=== PATIENT | female | born 1975 | race Caucasian/White ===

== ENCOUNTER 2017-10-02 17:18 | Day surgery (SDC) | payer SELFPAY ==
[2017-10-02 18:08] LABS: Basophils # (Auto) 0.1 K/mm3 (0.0-0.1); Basophils % (Auto) 0.9 % (0.0-1.8); Eosinophils # (Auto) 0.5 K/mm3 (0.0-0.4); Eosinophils % (Auto) 5.9 % (0.0-4.3); Hematocrit 34.4 % (30.3-42.9); Hemoglobin 11.1 gm/dl (10.1-14.3); Lymphocytes # (Auto) 1.7 K/mm3 (1.2-5.4); Lymphocytes % (Auto) 20.9 % (13.4-35.0); Mean Corpuscular HGB Conc 32 % (30-34); Mean Corpuscular Volume 77 fl (79-97); Monocytes # (Auto) 0.6 K/mm3 (0.0-0.8); Monocytes % (Auto) 7.4 % (0.0-7.3); Platelet Count 277 K/mm3 (140-440); Red Blood Count 4.46 M/mm3 (3.65-5.03); Red Cell Distribution Width 17.1 % (13.2-15.2)
[2017-10-02 18:15] LABS: Mean Corpuscular Hemoglobin 25 pg (28-32)
--- NOTE | 2017-10-02 19:23 | Emergency Department Report ---
ED Female HPI - General Chief complaint: Vaginal Bleeding Stated complaint: HEAVY BLEEDING Time Seen by Provider: 10/02/17 19:21 Source: patient Mode of arrival: Wheelchair Limitations: Language Barrier - History of Present Illness MD Complaint: vaginal bleeding -: Sudden, This afternoon Location: perineum Radiation: non-radiating Severity: severe Severity scale (0 -10): 8 Quality: cramping, sharp Consistency: constant Improves with: none Worsens with: none Are you Now?: Yes Associated Symptoms: vaginal bleeding - Related Data Sexually active: Yes Previous Rx's Medication Instructions Recorded Last Taken Type Doxycycline [Vibramycin CAP] 100 mg PO Q12HR #14 capsule 10/03/17 Unknown Rx Ibuprofen [Motrin] 800 mg PO Q8HR PRN #20 tablet 10/03/17 Unknown Rx Methylergonovine [Methergine] 0.2 mg PO Q8HR #6 tablet 10/03/17 Unknown Rx Allergies Allergy/AdvReac Type Severity Reaction Status Date / Time Penicillins Allergy Hives Verified 10/02/17 17:49 ED Review of Systems ROS: Stated complaint: HEAVY BLEEDING Other details as noted in HPI Comment: All other systems reviewed and negative Constitutional: denies: chills, fever Eyes: denies: eye pain, eye discharge ENT: denies: ear pain, throat pain Respiratory: denies: cough, shortness of breath Cardiovascular: denies: chest pain, palpitations, dyspnea on exertion Endocrine: no symptoms reported Gastrointestinal: denies: abdominal pain, nausea, vomiting, diarrhea, constipation Genitourinary: denies: urgency, dysuria, frequency Musculoskeletal: denies: back pain, joint swelling Skin: denies: rash, lesions, change in color Neurological: denies: headache, weakness, numbness Psychiatric: denies: anxiety, depression Hematological/Lymphatic: denies: easy bleeding, easy bruising ED Past Medical Hx - Past Medical History Previous Medical History?: Yes Additional medical history: miscarriage 2017 - Surgical History Past Surgical History?: No - Social History Smoking Status: Never Smoker Substance Use Type: None - Medications Home Medications: Home Medications Medication Instructions Recorded Confirmed Last Taken Type Doxycycline [Vibramycin CAP] 100 mg PO Q12HR #14 capsule 10/03/17 Unknown Rx Ibuprofen [Motrin] 800 mg PO Q8HR PRN #20 tablet 10/03/17 Unknown Rx Methylergonovine [Methergine] 0.2 mg PO Q8HR #6 tablet 10/03/17 Unknown Rx ED Physical Exam - General Limitations: Language Barrier General appearance: alert, in no apparent distress - Head Head exam: Present: atraumatic, normocephalic, normal inspection - Eye Eye exam: Present: normal appearance, PERRL, EOMI Pupils: Present: normal accommodation - ENT ENT exam: Present: normal exam, normal orophraynx, mucous membranes moist - Neck Neck exam: Present: normal inspection, full ROM. Absent: tenderness - Respiratory Respiratory exam: Present: normal lung sounds bilaterally. Absent: respiratory distress, wheezes, rales, rhonchi, stridor - Cardiovascular Cardiovascular Exam: Present: regular rate, normal rhythm, normal heart sounds - GI/Abdominal GI/Abdominal exam: Present: soft, normal bowel sounds. Absent: distended, tenderness, guarding, rebound, rigid - Rectal Rectal exam: Present: deferred - External exam: Present: normal external exam, bleeding Speculum exam: Present: vaginal bleeding (with clots.). Absent: foreign body, laceration Bi-manual exam: Present: uterine enlargement, uterine tenderness, other ( Cahrperonw was Ms. Kiara RN.) - Extremities Exam Extremities exam: Present: normal inspection, full ROM, normal capillary refill - Back Exam Back exam: Present: normal inspection, full ROM - Neurological Exam Neurological exam: Present: alert, oriented X3, CN II-XII intact - Psychiatric Psychiatric exam: Present: normal affect, flat affect - Skin Skin exam: Present: warm, dry, intact, normal color. Absent: rash ED Course Vital Signs 10/02/17 10/02/17 10/02/17 17:44 21:41 21:46 Temperature 99 F Pulse Rate 80 89 83 Respiratory 16 15 14 Rate Blood Pressure 139/85 137/89 137/89 Blood Pressure [Left] O2 Sat by Pulse 99 Oximetry 10/02/17 10/02/17 10/02/17 22:00 22:16 22:30 Temperature Pulse Rate 87 85 83 Respiratory 15 12 16 Rate Blood Pressure 137/89 137/89 137/89 Blood Pressure [Left] O2 Sat by Pulse Oximetry 10/02/17 10/02/17 10/02/17 22:33 22:46 23:48 Temperature Pulse Rate 64 84 102 H Respiratory 16 26 H 13 Rate Blood Pressure 137/89 Blood Pressure 138/76 [Left] O2 Sat by Pulse 96 Oximetry - Reevaluation(s) Reevaluation #1: 10/02/17 23:10 I consulted the OBGYN exploration geologist Dr Adilene Fernandez. He will take patient to the OR for further surgical management. ED Medical Decision Making - Lab Data Result diagrams: 10/02/17 17:52 10/02/17 20:42 - Radiology Data Radiology results: report reviewed, image reviewed - Medical Decision Making Vaginal Bleeding. Early . Spontaneous . Critical care attestation.: If time is entered above; I have spent that time in minutes in the direct care of this critically ill patient, excluding procedure time. ED Disposition Clinical Impression: Vaginal bleeding before 22 weeks gestation, Early stage of , Miscarriage, threatened, early Disposition: DC-01 TO HOME OR SELFCARE Is pt being admited?: Yes Does the pt Need Aspirin: No Condition: Good Time of Disposition: 23:11
[2017-10-02 19:37] LABS: Bilirubin,Urine NEG (Negative); Blood,Urine LG (Negative); Color,Urine Red (Yellow)
[2017-10-02 19:40] LABS: RBC,Urine > 182.0 /HPF (0.0-6.0)
[2017-10-02] MEDS ORDERED: NACL 0.9% 1000 ML 1,000 ML IV ONE ×2 (20:36→23:24)
[2017-10-02 21:01] LABS: INR 1.01 (0.87-1.13)
[2017-10-02 21:02] LABS: Partial Thromboplastin Time 28.7 Sec. (24.2-36.6)
[2017-10-02 21:08] LABS: Alanine Aminotransferase 11 units/L (7-56); BUN/Creatinine Ratio 30; Blood Urea Nitrogen 12 mg/dL (7-17); Calcium 8.9 mg/dL (8.4-10.2); Hemolysis Index 13
[2017-10-02] MEDS ORDERED: GARAMYCIN IV SCH (23:00)
[2017-10-02] MEDS ORDERED: CLEOCIN 600 MG/50 mL 600 MG/50 ML BAG IV NR (23:00)
[2017-10-02] MEDS ORDERED: GARAMYCIN/NS 120MG/100ML 120 MG/100 ML BAG IV ONE (23:00)
--- NOTE | 2017-10-02 23:04 | Short Stay Summary ---
Short Stay Documentation Date of service: 10/02/17 Narrative H&P: Pt is a 41 yo HF LMP 07/21/17presents to [facility] ER complaining of heavy vaginal bleeding since 3:30pm. Pt did not know she was with a Bhcg 5579. H/H is 11.1/34.4 Pelvic u/s was done, but not yet read, however pt is actively bleeding. She will therefore be admitted for a D&C due to Incomplete . - History Principal diagnosis: Incomplete H&P: obtained from office Past Medical History: other (asthma) Past Surgical History: No surgical history Social history: no significant social history, - Allergies and Medications Current Medications: Allergies Penicillins Allergy (Verified 10/02/17 17:49) Hives Home Medications Medication Instructions Recorded Confirmed Last Taken Type No Known Home Medications [No 10/02/17 10/02/17 Unknown History Reported Home Medications] - Physical exam General appearance: mild distress Integumentary: no rash HEENT: Atraumatic Lungs: Clear to auscultation Breasts: deferred Heart: Regular rate Gastrointestinal: normal Female Genitourinary: deferred Rectal Exam: deferred Extremities: no ischemia Neurological: Normal speech - Brief post op/procedure progress note Date of procedure: 10/03/17 Pre-op diagnosis: Incomplete Post-op diagnosis: same Procedure: Dilatation and curettage Anesthesia: MAC Findings: An 8-10 week size uterus with large amounts of blood and blood clots in the vaginal vault Surgeon: TERRA BROWN Estimated blood loss: 50-100ml Pathology: list (POC) Specimen disposition: to lab Condition: stable - Hospital course Hospital course: Unremarkable - Disposition Condition at discharge: Good Disposition: DC-01 TO HOME OR SELFCARE - Discharge Diagnoses (1) Incomplete Status: Resolved Short Stay Discharge Plan Activity: no restrictions Diet: regular Follow up with: PRIMARY CAREMD [Primary Care Provider] - 3-5 Days TERRA BROWN MD [Staff Physician] - 7 Days Prescriptions: Doxycycline [Vibramycin CAP] 100 mg PO Q12HR #14 capsule Ibuprofen [Motrin] 800 mg PO Q8HR PRN #20 tablet PRN Reason: Pain, Moderate (4-6) Methylergonovine [Methergine] 0.2 mg PO Q8HR #6 tablet
--- NOTE | 2017-10-02 23:11 | Ultrasound Report ---
FINAL REPORT PROCEDURE: US OB TRANSVAGINAL TECHNIQUE: Real-time transvaginal sonography of the uterus, placenta, amniotic fluid, adnexa, and fetus was performed with image documentation. Measurements were obtained to determine age/size. M-mode Doppler was used to document heartbeat. CPT 45655 HISTORY: vaginal bleeding COMPARISON: No prior studies are available for comparison. FINDINGS: An oval fluid filled sac measuring 2.2 x 0.8 x 1.6 centimeters is noted in the cervical canal. A pole is not visualized. Right ovary measures 2.8 x 2.4 x 2.8 centimeters and left ovary measures 2.8 x 0.8 x 1.6 centimeters with normal appearance. There is no free fluid in the pelvic cavity. Incidental note is made of a 8 centimeters 7.7 centimeters x 6.5 centimeter isoechoic lesion in the vaginal canal without any Doppler signal. IMPRESSION: A fluid-filled sac measuring 2.2 x 0.8 x 1.6 centimeters in the cervical canal most likely represents in progress. Follow-up studies and clinical correlation are recommended. Incidental note is made of 8 centimeters x 7.7 centimeters x 6.5 centimeter lesion in the vagina the exact etiology of this lesion is not known. Clinical correlation is recommended.
--- NOTE | 2017-10-02 23:16 | Ultrasound Report ---
FINAL REPORT PROCEDURE: US OB < = 14 WEEKS FETUS TECHNIQUE: Real-time transabdominal sonography of the uterus, placenta, amniotic fluid, adnexa, and fetus was performed with image documentation. Measurements were obtained to determine age/size. M-mode Doppler was used to document heartbeat. CPT 80570 HISTORY: vaginal bleeding COMPARISON: No prior studies are available for comparison. FINDINGS: An oval fluid filled sac measuring 2.2 x 0.8 x 1.6 centimeters is noted in the cervical canal. A pole is not visualized. Right ovary measures 2.8 x 2.4 x 2.8 centimeters and left ovary measures 2.8 x 0.8 x 1.6 centimeters with normal appearance. There is no free fluid in the pelvic cavity. Incidental note is made of a 8 centimeters 7.7 centimeters x 6.5 centimeter isoechoic lesion in the vaginal canal without any Doppler signal. IMPRESSION: A fluid-filled sac measuring 2.2 x 0.8 x 1.6 centimeters in the cervical canal most likely represents in progress. Follow-up studies and clinical correlation are recommended. Incidental note is made of 8 centimeters x 7.7 centimeters x 6.5 centimeter lesion in the vagina the exact etiology of this lesion is not known. Clinical correlation is recommended.
[2017-10-03] MEDS ORDERED: XYLOCAINE MPF 2% ONE (00:06)
[2017-10-03] MEDS ORDERED: DIPRIVAN 10 MG/ML IV ONE (00:07)
[2017-10-03] MEDS ORDERED: SUBLIMAZE ONE (00:07)
--- NOTE | 2017-10-03 00:17 | Anesthesia Day of Surgery ---
Anesthesia Day of Surgery - Day of Surgery Patient Examined: Yes Patient H&P Reviewed: Yes Patient is NPO: Yes
--- NOTE | 2017-10-03 00:18 | Anesthesia Consultation ---
Anesthesia Consult and Med Hx Date of service: 10/03/17 - Airway Anesthetic Teeth Evaluation: Good ROM Head & Neck: Adequate Mental/Hyoid Distance: Adequate Mallampati Class: Class I Intubation Access Assessment: Good - Pulmonary Exam CTA: Yes - Cardiac Exam Cardiac Exam: RRR - Pre-Operative Health Status ASA Pre-Surgery Classification: ASA2, Emergency Proposed Anesthetic Plan: General
[2017-10-03] MEDS ORDERED: NACL 0.9% IR ONE (00:19)
[2017-10-03] MEDS ORDERED: VERSED ONE (00:24)
[2017-10-03] MEDS ORDERED: DILAUDID IV PRN (00:36)
[2017-10-03] MEDS ORDERED: DEMEROL IV PRN (00:36)
[2017-10-03] MEDS ORDERED: ZOFRAN IV PRN (00:36)
--- NOTE | 2017-10-03 00:53 | Operative Report ---
Operative Report Operative Report: PREOPERATIVE DIAGNOSIS: Incomplete POSTOPERATIVE DIAGNOSIS: Same OPERATIVE PROCEDURE: Dilatation and curettage. SURGEON: Saqib Fernandez MD ANESTHESIA: Gen. mask ANESTHESIOLOGIST: Dr. Hutson ESTIMATED BLOOD LOSS: 100 mL FINDINGS: An 8 -10 weeks size uterus with large amounts of blood and blood clots in the vaginal vault COMPLICATIONS: None COUNTS: Correct x3. PROCEDURE: After the patient was correctly identified, and after general anesthesia was administered, the patient was prepped and draped in the usual sterile fashion and placed in dorsal lithotomy position. First, the bladder was emptied using a straight catheter. Next, a speculum was placed in the vaginal vault and the anterior lip of the cervix was grasped using a single- tooth tenaculum. The uterus was sounded to 10 cm. The cervical os was sequentially dilated, and an 10 mm vaccurette was used to suction blood and products of conception from the uterine cavity. After all the products of conception were removed, the procedure was considered complete. All instruments were removed from the vagina. The patient tolerated the procedure well and was transferred to the recovery room in stable condition.
[2017-10-03] MEDS ORDERED: DEMEROL ONE (01:14)
[2017-10-03 02:21] VITALS: BP 100/55
== END 2017-10-03 02:05 | disposition home or self-care (01) ==
LOC: ED 17:18 → OR 10-03 01:25
PROVIDERS: ATTEND Obstetrics & Gynecology
DX: O03.4 Incomplete spontaneous abortion without complication (principal); J45.909 Unspecified asthma, uncomplicated; Z88.6 Allergy status to analgesic agent; Z88.0 Allergy status to penicillin; Z79.899 Other long term (current) drug therapy; Z79.01 Long term (current) use of anticoagulants
CPT/HCPCS: 36415; 59812; 76801; 76817; 80053; 81001; 84702; 85025; 85610; 85730; 86850; 86900; 86901; 87210; 87591; 88305; J1580; J2175; J2250; J2405; J2704; J3010; J7030